=== PATIENT | male | born 1960 | race Caucasian/White ===

== ENCOUNTER 2025-03-27 10:46 | Day surgery (SDC) | payer MEDICARE ==
[2025-03-26 12:33] LABS: MEAN PLATELET VOLUME 8.1 FL (7.4-10.4); RED CELL DISTRIBUTION WIDTH 14.1 % (11.5-14.5)
[2025-03-26 12:41] LABS: APTT 25 SECONDS (22-32); INR 1.0 INR
[2025-03-26 12:45] LABS: CREATININE 1.13 MG/DL (0.60-1.10); TOTAL CARBON DIOXIDE 30.8 MMOL/L (24-32); eGFR 65 ML/MIN
[2025-03-27] VITALS (18 sets, daily range): BP systolic 120–158; BP diastolic 77–103; PULSE 66–97; RESP 13–23; TEMP 97.4; O2SAT 95–98
[~2025-03-27] VITALS: Ht 185.4 cm; Wt 119.0 kg
[2025-03-27] MEDS ORDERED: FINA5TAB11 PO (11:21)
[2025-03-27] MEDS ORDERED: EVOL140P3 SQ (11:21)
[2025-03-27] MEDS ORDERED: METO-395 PO (11:21)
[2025-03-27] MEDS ORDERED: CLOP75TA34 PO (11:21)
[2025-03-27] MEDS ORDERED: APIX5TAB3 PO (11:21)
[2025-03-27] MEDS ORDERED: NITR0.4T48 (11:21)
[2025-03-27] MEDS ORDERED: ASPI-611 PO (11:21)
[2025-03-27] MEDS ORDERED: VALS320T17 PO (11:21)
[2025-03-27] MEDS ORDERED: SEMA2PEN (11:21)
[2025-03-27] MEDS ORDERED: TAMSULOSIN PO (11:21)
[2025-03-27] MEDS ORDERED: UBID200C18 PO (11:21)
[2025-03-27] MEDS ORDERED: INSU200I4 SQ (11:21)
[2025-03-27] MEDS ORDERED: OMEG-166 PO (11:21)
[2025-03-27] MEDS ORDERED: EMPA25TA PO (11:21)
[2025-03-27] MEDS ORDERED: verapamil 2.5 mg/ml inj IV ONE (11:31)
[2025-03-27] MEDS ORDERED: midazolam 1 mg/ML 2ml injection ONE ×2 (11:31→12:34)
[2025-03-27] MEDS ORDERED: LIDOcaine 1% (10mg/ml) 2ml vial ONE (11:31)
[2025-03-27] MEDS ORDERED: fentaNYL/PF 50MCG/1 ML 2ML syringe ONE (11:31)
[2025-03-27] MEDS ORDERED: iohexol 350 MG/ML 50ML vial IV ONE (11:32)
[2025-03-27] MEDS ORDERED: heparin 1,000unit/ml 10ml vial 10 ML ONE ×2 (11:32→13:57)
--- NOTE | 2025-03-27 11:34 | ELECTROCARDIOGRAPH REPORT ---
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 Brynn James Measurements Intervals [place] Rate: 75 P: 60 MA: 164 QRS: 27 QRSD: 99 T: 36 QT: 375 QTc: 419 Interpretive Statements Sinus rhythm Poor R wa Electronically Signed On 03-28-2025 6:55:[address] Brynn James Please click the below link to view image of tracing.
[2025-03-27] MEDS ORDERED: nitroGLYCERIN 500mcg/5mL D5W 5 ML IV ONE (11:37)
[2025-03-27] MEDS ORDERED: heparin 25,000 UNIT/250ml bag 250 ML IV ONE (13:28)
--- NOTE | 2025-03-27 15:00 | ELECTROCARDIOGRAPH REPORT ---
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 Brynn James Measurements Intervals [place] Rate: 67 P: 43 CA: 171 QRS: 6 QRSD: 95 T: 28 QT: 389 QTc: 411 Interpretive Statements Sinus rhythm Poor R wave progression Electronically Signed On 03-28-2025 6:56:[address] Brynn James Please click the below link to view image of tracing.
[2025-03-27] MEDS ORDERED: OXAZEpam 15mg capsule PO PRN (15:20)
[2025-03-27] MEDS ORDERED: HYDROcodone/acetaminophen 10/325mg tab PO PRN (15:20)
[2025-03-27] MEDS ORDERED: HYDROcodone/acetaminophen 5mg/325mg tablet PO PRN (15:20)
[2025-03-27] MEDS: hydrALAZINE 20mg/ml inj. IV ONE (17:23)
[2025-03-27] MEDS: aspirin 81mg, enteric-coated 1 TAB TABLET.DR PO ONE (17:27)
[2025-03-27] MEDS: ondansetron/PF 4mg/2ml inj IV PRN (19:08)
--- NOTE | 2025-03-28 06:54 | ELECTROCARDIOGRAPH REPORT ---
[facility] Test Date: 2025-03-27 Test Time: 17:41:57 Pat Name: JESSE SINGLETARY Department: [facility]-S[facility] O Patient ID: [facility]-[id number] Room: Gender: M Educational Aid: : 1960 Requested By: ILA HAWK Order Number: [id number] Reading MD: Dr. Brynn James Measurements Intervals [place] Rate: 70 P: 63 MI: 164 QRS: 14 QRSD: 99 T: 33 QT: 371 QTc: 401 Interpretive Statements Sinus rhythm Borderline low voltage, extremity leads Electronically Signed On 03-28-2025 6:56:[address] Brynn James Please click the below link to view image of tracing.
--- NOTE | 2025-03-30 05:45 | CARDIOLOGY REPORT ---
DATE OF SERVICE: 03/27/2025 DICTATING PHYSICIAN: JUDY Lay MD CARDIAC CATHETERIZATION GENDER: Male. AGE: 64 years. HEIGHT: 185 cm. WEIGHT: One hundred nineteen kilos. BODY SURFACE AREA: 2.41 m2. PRIMARY PHYSICIAN: Diana May PA-C. STRAP MACHINE OPERATOR: JUDY Lay MD. INDICATION: The patient is a 64-year-old male with history of hypertension, hyperlipidemia, CAD, status post coronary artery stenting, and history of pulmonary embolism. History of CAD dates back to 04/02/2019 when the patient had PTCA stenting of the RCA with a 4.0 x 20 mm Synergy stent on 04/02/2019 at [facility]. The circumflex was occluded. Subsequently, the patient was referred to Dr. Felipe in the [facility]PECTOR clinic at [facility] and the patient subsequently on 05/23/2019 underwent recanalization of the PETROLEUM INSPECTOR via retrograde technique with a 3.0 x 38 mm Synergy stent. The patient had a myocardial perfusion scan on 03/04/2025, which showed lateral reversible defect, more proximal lateral. After discussing risks, benefits, and alternative options, the patient prefers to proceed with definitive coronary angiography. Risks, benefits, and alternative options were discussed. Informed consent was obtained. PROCEDURES DONE: * Ultrasound-guided right radial artery visualization and access. * Right brachial venogram. * Left heart catheterization. * LVG. * Coronary cineangiography. * Intravascular ultrasound of the LAD. * IFR calculation across the proximal, and two lesions in mid left anterior descending artery. PTCA stenting mid LAD. (distal of the two lesions in the mid LAD) * PTCA and stenting of the mid LAD (proximal of the two lesions in the mid LAD). CONSCIOUS SEDATION: 90 minutes. COMPLICATIONS: None. LEFT VENTRICULOGRAM: Overall left ventricular systolic function is 65% to 70%. HEMODYNAMICS: Aortic systolic 110, diastolic 59, mean 84 mmHg. LVEDP of 3 mmHg with no significant gradient across the aortic valve. CORONARY CINEANGIOGRAPHY: Left main coronary artery is a large caliber vessel from the left aortic sinus with mild luminal irregularities. LAD is a medium caliber vessel arising at the bifurcation of the left main coronary artery, LAD courses through the anterior interventricular groove and ends by wrapping around the apex. LAD very proximally has 40% narrowing. Mid portion shows very eccentric 70% to 80% narrowing, followed by another 60% to 70% narrowing again in the midsection. Remainder of the LAD shows mild luminal irregularities. Circumflex artery is 100% occluded proximally. Right coronary artery is a dominant vessel arising from the right aortic sinus, courses through the right AV groove and ends at the posterior crux by dividing into PDA and posterolateral branches. Stent in the mid right coronary artery is widely patent. Proximal to the stent, the patient has 60% narrowing. Distal RCA has 40% narrowing. PDA is diffusely diseased and is less than 2 mm. Posterolateral branches have mild luminal irregularities. Intravascular ultrasound of the LAD.: A 6-Setswana XB LAD 3.5 guide gave good support. Lesion crossed with PT2 moderate wire. the patient had an intravascular ultrasound of the two lesions in the mid portion and the proximal lesion. Mid and distal found to have significant plaque burden with significant narrowing. Calculation of IFR across three lesions in LAD: The patient subsequently had iFR and it showed that between the two mid lesions, iFR is 0.84 and between the proximal and mid lesions, 0.88. Hence, it was decided to angioplasty and stent the mid two lesions and leave the proximal lesion alone Both lesions were angioplastied with a 2.5 x 12 mm Trek balloon. Distal of the two lesions was stented with a 2.5 x 15 mm Rafael Imperial stent at 16 atmospheric pressure. Proximal of the two mid lesions was stented with a 3.5 x 12 mm Resolute Gaylord stent overlapping the prior stent. Proximal three fourth of the stented segment was was postdilated with a 3.5 balloon at 12 atmospheric pressure. . The patient had an attempt at a right heart catheterization via the antecubital approach, we could not advance the wire and the venography showed completely occluded proximal portion of the brachial vein with collateralization. IMPRESSION: A 64-year-old male with LV ejection fraction of 65% to 70%. LVEDP of 3 mmHg with no significant gradient across the aortic valve. Left main normal. Mid LAD 70% to 80% and 60% to 70% narrowing, . Both lesions had impaired IFR qualifying for stenting. Both lesions were successfully angioplastied and stented with 2.5 x 15 and 3.5 x 12 mm in an overlapping fashion with 0% ANDERSON 3 flow. Proximal LAD has a 40% non flow-limiting lesion with no impairment of IFR. Proximal circumflex is 100% occluded proximally within the long stent. Patient had recanalization of 100% occluded PETROLEUM INSPECTOR in the past which has been reoccluded now.. There were extensive izowm-tw-lhar collaterals passing the circumflex branches. Mid RCA stent is widely patent with 60% narrowing in the proximal RCA. Distal RCA has 40% narrowing. PDA is diffusely diseased. RECOMMENDATIONS: Continued aggressive coronary risk factor modification, namely low-fat, low-cholesterol diet, maintaining ideal body weight, keeping LDL less than 70 mg, regular exercise program. Recommend [facility] BV MD Rosanne TID: [id number] RECEIPT: [id number] TEMI/BRANDEN cc: Diana May PA-C. MTDAiden
== END 2025-03-27 19:50 | disposition home or self-care (01) ==
LOC: SSTAY O 10:46
PROVIDERS: ATTEND Internal Medicine Cardiovascular Disease
DX: R94.39 Abnormal result of other cardiovascular function study (principal); I35.0 Nonrheumatic aortic (valve) stenosis; I25.10 Atherosclerotic heart disease of native coronary artery without angina pectoris; I10 Essential (primary) hypertension; E11.9 Type 2 diabetes mellitus without complications; E78.5 Hyperlipidemia, unspecified; Z86.711 Personal history of pulmonary embolism; Z86.718 Personal history of other venous thrombosis and embolism; Z79.899 Other long term (current) drug therapy; Z95.5 Presence of coronary angioplasty implant and graft; Z98.890 Other specified postprocedural states; Z88.5 Allergy status to narcotic agent; Z88.8 Allergy status to other drugs, medicaments and biological substances
CPT/HCPCS: 36415; 80048; 82948; 85025; 85347; 85610; 85730; 92978; 93005; 93458; 93799; 99152; 99153; A4615; A6258; A6402; C1725; C1751; C1753; C1769; C1874; C1894; C9600; J0360; J1644; J1938; J2003; J2250; J2405; J3010; J3490; J7030; Q9967; Z7610; 76937; 93571